=== PATIENT | male | born 1945 | race Caucasian/White ===

== ENCOUNTER 2017-04-06 02:11 | Emergency (ER) | payer MEDICARE, BC ==
[~2017-04-06] VITALS: Ht 167.6 cm; Wt 75.0 kg
[~2017-04-06 02:11] MED LIST: CARV-50 PO; COU2.5T PO; COU5T PO; DIGO250T PO; FINA5TAB11 PO; FLO0.4C PO; FURO80TA87 PO; MECL12.584 PO; MULT-1179 PO; OMEP-84 PO; POTA10TA36 PO; POTA20TA19 PO
[2017-04-06] MEDS ORDERED: LIDOcaine 1.5% w/epinephrine 1:200,000 5ml ampul IJ ONE (02:20)
[2017-04-06 02:36] LABS: HEMATOCRIT 32.2 % (42.0-52.0); MEAN CORPUSCULAR HEMOGLOBIN 29.3 PG (27.0-31.0); MEAN PLATELET VOLUME 9.7 FL (7.4-10.4); PLATELET COUNT 66 X10'3 (140-440); RED BLOOD COUNT 3.74 X10'6 (4.70-6.10); RED CELL DISTRIBUTION WIDTH 17.6 % (11.5-14.5); WHITE BLOOD COUNT 3.9 X10'3 (4.5-11.0)
[2017-04-06 02:45] LABS: INR 2.6 INR; PROTHROMBIN TIME 25.6 SECONDS (9.0-12.0)
[2017-04-06 02:46] LABS: ALBUMIN 3.6 G/DL (3.4-5.0); BLOOD UREA NITROGEN 69 MG/DL (7-18); BUN/CREATININE RATIO 34.5 (5.4-32.0); CALCIUM 8.6 MG/DL (8.5-10.1); GLUCOSE 141 MG/DL (70-104); TOTAL CARBON DIOXIDE 29.8 MMOL/L (24-32); eGFR 33 ML/MIN
[2017-04-06 02:58] LABS: ANION GAP 6 (8-16); CHLORIDE 95 MMOL/L (99-107); POTASSIUM 4.6 MMOL/L (3.5-5.1); SODIUM 131 MMOL/L (135-145)
[2017-04-06 03:38] VITALS: BP 102/44
[2017-04-07] MEDS ORDERED: BUME1TAB4 PO (06:08)
[2017-04-07] MEDS ORDERED: ATOR40TA PO (06:10)
[2017-04-07] MEDS ORDERED: LACT1CAP65 PO (11:11)
[2017-04-07] MEDS ORDERED: SPIR25TA3 PO (11:11)
[2017-04-07] MEDS ORDERED: VITA-268 PO (11:11)
[2017-04-07] MEDS ORDERED: COU5T PO (11:11)
[2017-04-07] MEDS ORDERED: COU2.5T PO (11:11)
[2017-04-07] MEDS ORDERED: FLO0.4C PO (11:11)
[2017-04-07] MEDS ORDERED: ALLO100T PO (11:11)
[2017-04-07] MEDS ORDERED: MULT1TAB74 PO (11:11)
[2017-04-07] MEDS ORDERED: DIGO125T2 PO (11:11)
[2017-04-07] MEDS ORDERED: BUME2TAB3 PO (11:11)
[2017-04-07] MEDS ORDERED: ATOR40TA71 PO (11:11)
[2017-04-07] MEDS ORDERED: ASCO500C15 PO (11:11)
[2017-04-07] MEDS ORDERED: FINA5TAB11 PO (11:11)
[2017-04-08] MEDS ORDERED: TAM75C PO (13:17)
== END 2017-04-06 03:40 | disposition home or self-care (01) ==
LOC: ER 02:11
DX: S81.812A Laceration without foreign body, left lower leg, initial encounter (principal); I83.892 Varicose veins of left lower extremity with other complications; N28.9 Disorder of kidney and ureter, unspecified; I11.0 Hypertensive heart disease with heart failure; I50.9 Heart failure, unspecified; I25.10 Atherosclerotic heart disease of native coronary artery without angina pectoris; Z95.1 Presence of aortocoronary bypass graft; Z79.01 Long term (current) use of anticoagulants; Z88.5 Allergy status to narcotic agent; X58.XXXA Exposure to other specified factors, initial encounter; Y93.89 Activity, other specified; Y92.89 Other specified places as the place of occurrence of the external cause; Y99.8 Other external cause status
CPT/HCPCS: 12001; 36415; 80048; 85027; 85610; 99284; A6446; A6449; J3490

== ENCOUNTER 2017-06-21 12:12 | Emergency (ER) | payer MEDICARE, BC ==
[~2017-06-21] VITALS: Ht 167.6 cm; Wt 77.3 kg
[~2017-06-21 12:12] MED LIST changes: +ALLO100T PO; +ASCO500C15 PO; +ATOR40TA71 PO; +BUME2TAB3 PO; -CARV-50 PO; +DIGO125T2 PO; -DIGO250T PO; -FURO80TA87 PO; +LACT1CAP65 PO; -MECL12.584 PO; -MULT-1179 PO; +MULT1TAB74 PO; -OMEP-84 PO; -POTA10TA36 PO; -POTA20TA19 PO; +SPIR25TA3 PO; +TAM75C PO; +VITA-268 PO
[2017-06-21 12:35] VITALS: BP 126/55
[2017-06-21] MEDS ORDERED: TETanus/Pertussis (Acell)/Diphther VAC/PF (Tdap-Adult) 0.5ml syringe IM ONE (12:40)
[2017-06-21] MEDS ORDERED: LIDOcaine 1.5% w/epinephrine 1:200,000 5ml ampul IJ ONE (12:40)
[2017-06-21] MEDS ORDERED: CEPH-571 PO (13:07)
== END 2017-06-21 13:19 | disposition home or self-care (01) ==
LOC: ER 12:13
DX: I83.92 Asymptomatic varicose veins of left lower extremity (principal); L03.116 Cellulitis of left lower limb; L03.115 Cellulitis of right lower limb; I25.10 Atherosclerotic heart disease of native coronary artery without angina pectoris; I50.9 Heart failure, unspecified; Z90.49 Acquired absence of other specified parts of digestive tract; Z95.1 Presence of aortocoronary bypass graft; Z95.0 Presence of cardiac pacemaker; Z88.5 Allergy status to narcotic agent; Z79.899 Other long term (current) drug therapy; Z79.01 Long term (current) use of anticoagulants
CPT/HCPCS: 12001; 99284; A6223; A6255; A6446; A6449; J3490; 90715